=== PATIENT | male | born 1985 | race Caucasian/White ===

== ENCOUNTER → 2024-03-01 | Outpatient (REF) | payer OTHER ==
[2024-03-01 17:50] LABS: HEMATOCRIT 35.4 % (42.0-52.0); HEMOGLOBIN 9.6 g/dl (13.5-17.5); MEAN CORPUSCULAR HGB CONC 27.1 g/dl (32.0-36.5); MEAN CORPUSCULAR VOLUME 73.8 fl (80.0-96.0); PLATELET COUNT, AUTOMATED 326 10^3/uL (150-450)
[2024-03-01 18:22] LABS: ALBUMIN 3.3 G/DL (3.2-5.2); ALKALINE PHOSPHATASE 115 U/L (46-116); ALT/SGPT 61 U/L (7.0-40); AST/SGOT 39 U/L (<34); BILIRUBIN,TOTAL 0.7 MG/DL (0.3-1.2); BLOOD UREA NITROGEN 12 MG/DL (9-23); CALCIUM LEVEL 8.9 MG/DL (8.5-10.1); CARBON DIOXIDE LEVEL 27 MMOL/L (20-31); CHLORIDE LEVEL 104 MMOL/L (98-107); CHOLESTEROL LEVEL 134 MG/DL (<200); CHOLESTEROL RISK RATIO 2.44 (<5); CREATININE FOR GFR 0.84 MG/DL (0.70-1.30); GLOMERULAR FILTRATION RATE > 60.0 (>60); GLUCOSE, FASTING 126 MG/DL (60-100); HDL CHOLESTEROL 54.9 MG/DL (>40); LDL CHOLESTEROL 63.5 MG/DL (<100); NON-HDL-C 79.1 MG/DL; POTASSIUM SERUM 4.1 MMOL/L (3.5-5.1); SODIUM LEVEL 137 MMOL/L (136-145); TRIGLYCERIDES LEVEL 78 MG/DL (<150)
[2024-03-01 18:23] LABS: THYROID STIMULATING HORMONE 3.398 uIU/ML (0.55-4.78)
== END ==
LOC: M LAB REF 16:22
PROVIDERS: ATTEND Physician Assistant
DX: E66.01 Morbid (severe) obesity due to excess calories (principal)

== ENCOUNTER → 2024-04-09 | Outpatient (CLI) | payer MEDICAID | LOC: M RAD 08:45 | PROVIDERS: ATTEND Physician Assistant | DX: R74.01 Elevation of levels of liver transaminase levels (principal) ==

== ENCOUNTER → 2024-09-25 | Outpatient (REF) | payer OTHER, MEDICAID ==
[2024-09-25 15:21] LABS: BASO # 0.1 10^3/uL (0.0-0.2); BASO % 0.6 % (0.0-1.0); EOS # 0.3 10^3/uL (0.0-0.5); EOS % 3.9 % (0.0-3.0); HEMATOCRIT 51.7 % (42.0-52.0); HEMOGLOBIN 16.6 g/dl (13.5-17.5); LYMPH # 1.4 10^3/uL (1.5-5.0); LYMPH % 17.5 % (24.0-44.0); MEAN CORPUSCULAR HEMOGLOBIN 29.8 pg (27.0-33.0); MEAN CORPUSCULAR HGB CONC 32.1 g/dl (32.0-36.5); MEAN CORPUSCULAR VOLUME 92.8 fl (80.0-96.0); MONO # 0.6 10^3/uL (0.0-0.8); MONO % 7.8 % (2.0-8.0); NEUTROPHILS # 5.4 10^3/uL (1.5-8.5); NEUTROPHILS % 69.9 % (36.0-66.0); PLATELET COUNT, AUTOMATED 219 10^3/uL (150-450); RED BLOOD COUNT 5.57 10^6/uL (4.30-6.10); WHITE BLOOD COUNT 7.8 10^3/uL (4.0-10.0)
[2024-09-25 15:49] LABS: ALBUMIN 3.5 G/DL (3.2-5.2); ALKALINE PHOSPHATASE 112 U/L (40-129); ALT/SGPT 83 U/L (7.0-40); AST/SGOT 83 U/L (<34); BILIRUBIN,DIRECT 0.4 MG/DL (<0.4); BILIRUBIN,TOTAL 0.9 MG/DL (0.3-1.2); IRON (FE) 46 UG/DL (65-175); PERCENT SATURATION 14.2 % (19.7-50.0); TOTAL IRON BINDING CAPACITY 323 UG/DL (250-425); TOTAL PROTEIN 7.3 G/DL (5.7-8.2)
[2024-09-25 15:50] LABS: FERRITIN 64.6 NG/ML (10.5-307.3)
[2024-09-25 16:03] LABS: HEPATITIS B SURFACE ANTIGEN NEGATIVE (NEGATIVE)
[2024-09-25 16:24] LABS: HEPATITIS C VIRUS ABY INDEX 0.04 INDEX (<0.8)
[2024-09-25 16:25] LABS: HEPATITIS B CORE ANTIBODY IGM NEGATIVE (NEGATIVE)
== END ==
LOC: M LAB REF 14:13
PROVIDERS: ATTEND Physician Assistant
DX: R74.01 Elevation of levels of liver transaminase levels (principal)

== ENCOUNTER 2024-12-31 09:03 | Emergency (ER) | payer OTHER ==
[~2024-12-31] VITALS: Ht 172.7 cm; Wt 194.7 kg
[2024-12-31] MEDS ORDERED: AMLO1TAB24 PO (09:14)
[2024-12-31] MEDS ORDERED: HOME MED LIST COMPLETE! XX SCH (09:55)
[2024-12-31] MEDS: ASPIRIN 81 MG CHEWABLE TABLET PO ONE (10:06)
[2024-12-31 10:08] LABS: BASO # 0.0 10^3/uL (0.0-0.2); BASO % 0.5 % (0.0-1.0); EOS # 0.1 10^3/uL (0.0-0.5); EOS % 1.1 % (0.0-3.0); LYMPH # 1.3 10^3/uL (1.5-5.0); LYMPH % 15.6 % (24.0-44.0); MONO # 0.5 10^3/uL (0.0-0.8); MONO % 6.3 % (2.0-8.0); NEUTROPHILS # 6.3 10^3/uL (1.5-8.5); NEUTROPHILS % 76.1 % (36.0-66.0); PLATELET COUNT, AUTOMATED 199 10^3/uL (150-450)
[2024-12-31 10:34] LABS: ALT/SGPT 62 U/L (7.0-40); AST/SGOT 81 U/L (<34); CALCIUM LEVEL 9.0 MG/DL (8.5-10.1); CARBON DIOXIDE LEVEL 24 MMOL/L (20-31); CHLORIDE LEVEL 98 MMOL/L (98-107); CK-MB VALUE MASS < 1.0 NG/ML (<3.6); CREATININE FOR GFR 0.74 MG/DL (0.70-1.30); GLOMERULAR FILTRATION RATE > 90.0 (>60); POTASSIUM SERUM 3.9 MMOL/L (3.5-5.1); SODIUM LEVEL 137 MMOL/L (136-145)
[2024-12-31 10:38] LABS: FREE T4 1.19 NG/DL (0.89-1.76)
[2024-12-31 10:46] LABS: CPK CREATINE PHOSPHOKINASE 35 U/L (46-171)
[2024-12-31] MEDS ORDERED: ISOVUE-370 76% 100 ML VIAL As Ordered ONE (11:04)
[2024-12-31 11:21] LABS: CK-MB VALUE MASS < 1.0 NG/ML (<3.6)
[2024-12-31 11:41] LABS: CPK CREATINE PHOSPHOKINASE 27 U/L (46-171)
[2024-12-31 12:18] LABS: INR 0.99
[2024-12-31 14:16] VITALS: BP 134/73; TEMP 98.9; O2SAT 97
== END 2024-12-31 14:27 | disposition home or self-care (01) ==
LOC: M ED 09:03
DX: R07.9 Chest pain, unspecified (principal); R91.8 Other nonspecific abnormal finding of lung field; R16.0 Hepatomegaly, not elsewhere classified; K44.9 Diaphragmatic hernia without obstruction or gangrene; R00.0 Tachycardia, unspecified; I10 Essential (primary) hypertension; F12.10 Cannabis abuse, uncomplicated; Z79.899 Other long term (current) drug therapy
CPT/HCPCS: 36415; 71045; 71275; 80048; 80076; 82550; 82553; 84439; 84443; 84484; 85025; 85610; 85730; 93005; 93041; 94760; 99285; Q9967

== ENCOUNTER 2025-01-17 16:46 | Emergency (ER) | payer OTHER ==
[~2025-01-17] VITALS: Ht 172.7 cm; Wt 181.7 kg
[~2025-01-17 16:46] MED LIST: AMLO1TAB24 PO
[2025-01-17 17:58] LABS: BASO # 0.1 10^3/uL (0.0-0.2); BASO % 0.9 % (0.0-1.0); EOS # 0.1 10^3/uL (0.0-0.5); EOS % 1.1 % (0.0-3.0); LYMPH # 1.3 10^3/uL (1.5-5.0); LYMPH % 12.8 % (24.0-44.0); MONO # 0.9 10^3/uL (0.0-0.8); MONO % 8.4 % (2.0-8.0); NEUTROPHILS # 7.9 10^3/uL (1.5-8.5); NEUTROPHILS % 76.4 % (36.0-66.0); PLATELET COUNT, AUTOMATED 208 10^3/uL (150-450)
[2025-01-17 18:26] LABS: ALT/SGPT 78 U/L (7.0-40); AST/SGOT 79 U/L (<34); CALCIUM LEVEL 9.3 MG/DL (8.5-10.1); CARBON DIOXIDE LEVEL 22 MMOL/L (20-31); CHLORIDE LEVEL 98 MMOL/L (98-107); CREATININE FOR GFR 0.75 MG/DL (0.70-1.30); GLOMERULAR FILTRATION RATE > 90.0 (>60); POTASSIUM SERUM 3.5 MMOL/L (3.5-5.1); SODIUM LEVEL 137 MMOL/L (136-145)
[2025-01-17] MEDS: GASTROGRAFIN SOLUTION 30ML PO SCH (21:57)
[2025-01-17 23:30] VITALS: BP 155/91; TEMP 98; O2SAT 96
[2025-01-17] MEDS ORDERED: ISOVUE-370 76% 100 ML VIAL As Ordered ONE (23:31)
[2025-01-18] MEDS ORDERED: SUCR1SS PO (01:00)
[2025-01-18] MEDS ORDERED: REGL10TA6 PO (01:00)
== END 2025-01-18 01:10 | disposition home or self-care (01) ==
LOC: M ED 16:46
DX: K44.9 Diaphragmatic hernia without obstruction or gangrene (principal); R00.1 Bradycardia, unspecified; I25.2 Old myocardial infarction; K21.9 Gastro-esophageal reflux disease without esophagitis; I10 Essential (primary) hypertension; Z87.891 Personal history of nicotine dependence; Z79.899 Other long term (current) drug therapy
CPT/HCPCS: 74177; 80048; 80076; 83690; 85025; 93005; 96374; 99284; J2765; Q9963; Q9967

== ENCOUNTER 2025-01-21 09:46 | Emergency (ER) | payer OTHER ==
[~2025-01-21] VITALS: Ht 172.7 cm; Wt 181.7 kg
[~2025-01-21 09:46] MED LIST changes: +REGL10TA6 PO; +SUCR1SS PO
[2025-01-21 11:26] LABS: BASO # 0.1 10^3/uL (0.0-0.2); BASO % 0.6 % (0.0-1.0); EOS # 0.0 10^3/uL (0.0-0.5); EOS % 0.3 % (0.0-3.0); LYMPH # 1.1 10^3/uL (1.5-5.0); LYMPH % 9.7 % (24.0-44.0); MONO # 0.8 10^3/uL (0.0-0.8); MONO % 7.1 % (2.0-8.0); NEUTROPHILS # 8.8 10^3/uL (1.5-8.5); NEUTROPHILS % 81.7 % (36.0-66.0)
[2025-01-21] MEDS: PANTOPRAZOLE 40MG VIAL IV ONE (11:26)
[2025-01-21] MEDS: NS (Normal Saline) 0.9% 1,000 ML IV ONE (11:26)
[2025-01-21] MEDS: MORPHINE 4 MG/ML 1 ML VIAL IV ONE (11:27)
[2025-01-21 11:38] LABS: INR 1.01
[2025-01-21 11:43] LABS: PLATELET COUNT, AUTOMATED 149 10^3/uL (150-450)
[2025-01-21 11:55] LABS: ALT/SGPT 86 U/L (7.0-40); AST/SGOT 92 U/L (<34); CALCIUM LEVEL 9.2 MG/DL (8.5-10.1); CARBON DIOXIDE LEVEL 25 MMOL/L (20-31); CHLORIDE LEVEL 96 MMOL/L (98-107); CREATININE FOR GFR 0.71 MG/DL (0.70-1.30); GLOMERULAR FILTRATION RATE > 90.0 (>60); POTASSIUM SERUM 4.6 MMOL/L (3.5-5.1); SODIUM LEVEL 137 MMOL/L (136-145)
[2025-01-21] MEDS ORDERED: ISOVUE-370 76% 100 ML VIAL As Ordered ONE (13:25)
[2025-01-21 19:20] VITALS: BP 141/106; TEMP 96.6; O2SAT 100
== END 2025-01-21 19:20 | disposition short-term general hospital (02) ==
LOC: M ED 09:46
DX: K92.0 Hematemesis (principal); K44.9 Diaphragmatic hernia without obstruction or gangrene; I10 Essential (primary) hypertension; K21.9 Gastro-esophageal reflux disease without esophagitis; Z87.891 Personal history of nicotine dependence; Z79.899 Other long term (current) drug therapy
CPT/HCPCS: 74177; 80048; 80076; 83605; 83690; 85025; 85610; 85730; 86850; 86900; 86901; 96374; 96375; 99284; J2470; J2765; Q9967

== ENCOUNTER 2025-02-11 16:30 | Inpatient (IN) | payer OTHER ==
[~2025-02-11] VITALS: Ht 172.7 cm; Wt 181.3 kg
[2025-02-12] MEDS ORDERED: MOM 30 ML SUSPENSION UDC PO PRN (13:50)
[2025-02-12] MEDS ORDERED: CAPSAICIN 0.1% CR 56.6 GM TOP PRN (13:50)
[2025-02-12] MEDS ORDERED: ONDANSETRON 4MG ORAL DISINTEGRATING TAB PO PRN (13:50)
[2025-02-12] MEDS ORDERED: MECLIZINE 25 MG TABLET PO PRN (14:25)
[2025-02-12] MEDS ORDERED: FAMO1TAB11 PO (14:32)
[2025-02-12] MEDS ORDERED: LIDO1ADH93 TD (14:32)
[2025-02-12] MEDS ORDERED: FOLI1TAB11 PO (14:32)
[2025-02-12] MEDS ORDERED: PANT-23 PO (14:32)
[2025-02-12] MEDS ORDERED: ACET1TAB55 PO (14:32)
[2025-02-12] MEDS ORDERED: CAPS42.54 TOP (14:32)
[2025-02-12] MEDS ORDERED: MIRA3350 PO (14:32)
[2025-02-12] MEDS ORDERED: ONDA-282 PO (14:32)
[2025-02-12] MEDS ORDERED: METH-1164 PO (14:32)
[2025-02-12] MEDS ORDERED: ENOX40IN3 SC (14:32)
[2025-02-12] MEDS ORDERED: SENN-186 PO (14:32)
[2025-02-12] MEDS ORDERED: MICO2CRE22 TOP (14:32)
[2025-02-12] MEDS ORDERED: [UNRECOGNIZED DRUG - CODE] PO (14:32)
[2025-02-12] MEDS ORDERED: CVS10CAP7 PO (14:32)
[2025-02-12] MEDS ORDERED: MED REC COMMENT (14:36)
[2025-02-12] MEDS ORDERED: HOME MED LIST COMPLETE! XX SCH (14:40)
[2025-02-12 14:48] LABS: ESTIMATED AVERAGE GLUCOSE 108.0 MG/DL (60-110)
[2025-02-12 14:50] LABS: PLATELET COUNT, AUTOMATED 187 10^3/uL (150-450)
[2025-02-12 15:02] LABS: INR 0.94
[2025-02-12 15:10] LABS: ALT/SGPT 37 U/L (7.0-40); AST/SGOT 40 U/L (<34); CALCIUM LEVEL 9.0 MG/DL (8.5-10.1); CARBON DIOXIDE LEVEL 24 MMOL/L (20-31); CHLORIDE LEVEL 98 MMOL/L (98-107); CHOLESTEROL LEVEL 139.0 MG/DL (<200); CHOLESTEROL RISK RATIO 2.46 (<5); CREATININE FOR GFR 0.60 MG/DL (0.70-1.30); GLOMERULAR FILTRATION RATE > 90.0 (>60); LDL CHOLESTEROL 63.9 MG/DL (<100); NON-HDL-C 82.5 MG/DL; POTASSIUM SERUM 3.9 MMOL/L (3.5-5.1); SODIUM LEVEL 134 MMOL/L (136-145); TRIGLYCERIDES LEVEL 93.0 MG/DL (<150)
[2025-02-12 15:17] VITALS: O2SAT 97
[2025-02-12 15:51] VITALS: BP 147/94; TEMP 97.6; O2SAT 98
[2025-02-12] MEDS: LIDOCAINE 5% PATCH TD SCH (16:52)
[2025-02-12 18:41] VITALS: O2SAT 97
[2025-02-12] MEDS: RAMELTEON 8 MG TAB PO SCH (20:34)
[2025-02-12] MEDS: NYSTATIN 100,000 UNITS/GM TOPICAL PWD 15 GM TOP SCH (20:35)
[2025-02-12] MEDS: FAMOTIDINE 20 MG TAB PO SCH (20:35)
[2025-02-12] MEDS: ENOXAPARIN 40 MG/0.4 ML SYRINGE (J1650 PER 10MG) SC SCH (20:35)
[2025-02-12] MEDS: SENNA 8.6 MG TAB PO SCH (20:35)
[2025-02-12 20:56] VITALS: BP 153/103; TEMP 97.5; O2SAT 96
[2025-02-13 06:34] VITALS: BP 142/93; TEMP 97.3; O2SAT 96
[2025-02-13] MEDS: MIRALAX *UNIT DOSE* 17 GM PACKET PO SCH (08:20)
[2025-02-13] MEDS: PANTOPRAZOLE 40MG TAB PO SCH (08:28)
[2025-02-13] MEDS: amLODIPine 10 MG TAB PO SCH (08:28)
[2025-02-13] MEDS: FOLIC ACID 1 MG TAB PO SCH (08:28)
[2025-02-13 20:30] VITALS: BP 147/99; TEMP 97.3; O2SAT 96
[2025-02-13] MEDS: ACETAMINOPHEN 325 MG TAB PO PRN (20:32)
[2025-02-14 05:55] VITALS: BP 151/101; TEMP 97.5; O2SAT 96
[2025-02-15 04:44] VITALS: BP 129/90; TEMP 96.8; O2SAT 98
[2025-02-15 09:40] VITALS: BP 150/115
[2025-02-15 21:50] VITALS: BP 156/92
[2025-02-16 05:31] VITALS: BP 158/104; TEMP 97.2; O2SAT 95
[2025-02-16 05:40] VITALS: BP 152/94
[2025-02-16 09:11] VITALS: BP 163/104
[2025-02-17 06:26] VITALS: BP 162/106; TEMP 97.5; O2SAT 93
[2025-02-17] MEDS: METOPROLOL TART 25 MG TABLET PO SCH (08:45)
[2025-02-18 06:36] VITALS: BP 148/97; TEMP 97.3; O2SAT 93
[2025-02-18] MEDS: VITAMIN D 50,000 UNITS CAPSULE (ERGOCALCIFEROL 1.25MG) PO SCH (09:20)
[2025-02-19 02:37] LABS: BASO # 0.1 10^3/uL (0.0-0.2); BASO % 0.8 % (0.0-1.0); EOS # 0.1 10^3/uL (0.0-0.5); EOS % 1.4 % (0.0-3.0); LYMPH # 1.6 10^3/uL (1.5-5.0); LYMPH % 17.9 % (24.0-44.0); MONO # 0.9 10^3/uL (0.0-0.8); MONO % 9.8 % (2.0-8.0); NEUTROPHILS # 6.0 10^3/uL (1.5-8.5); NEUTROPHILS % 69.5 % (36.0-66.0); PLATELET COUNT, AUTOMATED 262 10^3/uL (150-450)
[2025-02-19 03:05] LABS: ALT/SGPT 50 U/L (7.0-40); AST/SGOT 49 U/L (<34); CALCIUM LEVEL 9.6 MG/DL (8.5-10.1); CARBON DIOXIDE LEVEL 24 MMOL/L (20-31); CHLORIDE LEVEL 93 MMOL/L (98-107); CREATININE FOR GFR 0.60 MG/DL (0.70-1.30); GLOMERULAR FILTRATION RATE > 90.0 (>60); POTASSIUM SERUM 3.9 MMOL/L (3.5-5.1); SODIUM LEVEL 131 MMOL/L (136-145)
[2025-02-19 03:24] LABS: MONO REFLEX EBV VCA IgM NEGATIVE (NEGATIVE)
[2025-02-19 03:51] LABS: HEPATITIS C VIRUS ABY INDEX < 0.02 INDEX (<0.8)
[2025-02-19 06:37] VITALS: BP 140/94; TEMP 96.8; O2SAT 96
[2025-02-19 09:41] LABS: KETONE, URINE AUTO RFX NEGATIVE (NEGATIVE); LEUKOCYTE ESTERASE UR AUTO RFX NEGATIVE (NEGATIVE); MUCUS, URINE RFX SMALL (NEGATIVE); NITRITE, URINE AUTO RFX NEGATIVE (NEGATIVE); RBC, URINE AUTO RFX 0 /HPF (0-3); SQUAM EPITHELIAL CELL UR AURFX 0 /HPF (0-6); WBC, URINE AUTO RFX 3 /HPF (0-3)
[2025-02-19] MEDS: NS (Normal Saline) 0.9% 1,000 ML IV SCH (22:36)
[2025-02-19 22:41] VITALS: BP 142/92
[2025-02-20 04:00] VITALS: BP 132/93; TEMP 96.8; O2SAT 97
[2025-02-20 07:42] LABS: ALT/SGPT 43 U/L (7.0-40); AST/SGOT 36 U/L (<34); CALCIUM LEVEL 9.0 MG/DL (8.5-10.1); CARBON DIOXIDE LEVEL 22 MMOL/L (20-31); CHLORIDE LEVEL 97 MMOL/L (98-107); CREATININE FOR GFR 0.54 MG/DL (0.70-1.30); GLOMERULAR FILTRATION RATE > 90.0 (>60); POTASSIUM SERUM 3.5 MMOL/L (3.5-5.1); SODIUM LEVEL 133 MMOL/L (136-145)
[2025-02-20 09:05] LABS: SODIUM,RANDOM URINE < 10 MMOL/L
[2025-02-20 20:00] VITALS: BP 128/88; TEMP 97.3; O2SAT 94
[2025-02-21 05:52] VITALS: BP 136/86; TEMP 97.2; O2SAT 95
[2025-02-21 10:30] LABS: PLATELET COUNT, AUTOMATED 196 10^3/uL (150-450)
[2025-02-21 10:59] LABS: ALT/SGPT 44 U/L (7.0-40); AST/SGOT 39 U/L (<34); CALCIUM LEVEL 8.3 MG/DL (8.5-10.1); CARBON DIOXIDE LEVEL 23 MMOL/L (20-31); CHLORIDE LEVEL 100 MMOL/L (98-107); CREATININE FOR GFR 0.47 MG/DL (0.70-1.30); GLOMERULAR FILTRATION RATE > 90.0 (>60); POTASSIUM SERUM 3.8 MMOL/L (3.5-5.1); SODIUM LEVEL 134 MMOL/L (136-145)
[2025-02-21 14:00] VITALS: BP 148/98; TEMP 97.3; O2SAT 97
[2025-02-21 20:03] VITALS: BP 133/77; TEMP 97.8; O2SAT 98
[2025-02-22 05:47] VITALS: BP 132/79; TEMP 97.9; O2SAT 97
[2025-02-22 14:00] VITALS: BP 140/95; TEMP 97.5; O2SAT 97
[2025-02-22 20:14] VITALS: BP 132/80; TEMP 97.5; O2SAT 96
[2025-02-23 05:52] VITALS: BP 126/78; TEMP 97.2; O2SAT 98
[2025-02-23 09:43] LABS: PLATELET COUNT, AUTOMATED 185 10^3/uL (150-450)
[2025-02-23 10:15] LABS: CALCIUM LEVEL 8.1 MG/DL (8.5-10.1); CARBON DIOXIDE LEVEL 23 MMOL/L (20-31); CHLORIDE LEVEL 100 MMOL/L (98-107); CREATININE FOR GFR 0.49 MG/DL (0.70-1.30); GLOMERULAR FILTRATION RATE > 90.0 (>60); POTASSIUM SERUM 3.4 MMOL/L (3.5-5.1); SODIUM LEVEL 134 MMOL/L (136-145)
[2025-02-23 14:00] VITALS: BP 134/78; TEMP 97.3; O2SAT 98
[2025-02-23 20:07] VITALS: BP 106/67; TEMP 97.3; O2SAT 97
[2025-02-24 06:08] VITALS: BP 126/73; TEMP 97; O2SAT 99
[2025-02-24] MEDS: ANALGESIC BALM CRM 3 OZ TOP SCH (09:00)
[2025-02-24] MEDS: GABAPENTIN 100 MG CAP PO SCH (11:02)
[2025-02-24 15:05] LABS: AMPHETAMINES LEVEL URINE NEGATIVE (NEGATIVE); BARBITURATES URINE NEGATIVE (NEGATIVE); BENZODIAZEPINES URINE NEGATIVE (NEGATIVE); COCAINE METABOLITE URINE NEGATIVE (NEGATIVE); METHADONE URINE NEGATIVE (NEGATIVE); OPIATES URINE NEGATIVE (NEGATIVE); PHENCYCLIDINE URINE NEGATIVE (NEGATIVE)
[2025-02-24 15:07] LABS: CANNABINOIDS URINE POSITIVE (NEGATIVE)
[2025-02-24 20:00] VITALS: BP 138/86; TEMP 97.3; O2SAT 97
[2025-02-25 06:18] VITALS: BP 139/82; TEMP 97; O2SAT 96
[2025-02-26 05:41] VITALS: BP 128/78; TEMP 97.2; O2SAT 97
[2025-02-27 05:18] VITALS: BP 119/76; TEMP 97.2; O2SAT 96
[2025-02-28 06:23] VITALS: BP 151/78; TEMP 97.2; O2SAT 97
[2025-02-28 20:00] VITALS: BP 120/83; TEMP 97.3; O2SAT 97
[2025-03-01 05:26] VITALS: BP 125/82; TEMP 97.3; O2SAT 96
[2025-03-01 19:39] VITALS: BP 128/85; TEMP 97.5; O2SAT 98
[2025-03-02 06:00] VITALS: BP 139/88; TEMP 97.7; O2SAT 98
[2025-03-02 20:31] VITALS: BP 138/88; TEMP 97.3; O2SAT 96
[2025-03-03 06:00] VITALS: BP 143/75; TEMP 97.2; O2SAT 97
[2025-03-04 06:00] VITALS: BP 142/86; TEMP 97.3; O2SAT 97
[2025-03-04 09:19] VITALS: BP 132/77
== END 2025-03-04 12:05 | disposition left against medical advice (07) | DRG 422 ==
LOC: M MS5PR 02-12 12:40 → OBSVTOIN 02-19 20:16
PROVIDERS: ADMIT Student in an Organized Health Care Education/Training Program; ATTEND Student in an Organized Health Care Education/Training Program
DX: E87.1 Hypo-osmolality and hyponatremia (principal); K92.0 Hematemesis; Z68.44 Body mass index [BMI] 60.0-69.9, adult; E66.01 Morbid (severe) obesity due to excess calories; G62.1 Alcoholic polyneuropathy; R16.1 Splenomegaly, not elsewhere classified; K76.0 Fatty (change of) liver, not elsewhere classified; E53.8 Deficiency of other specified B group vitamins; R91.1 Solitary pulmonary nodule; I95.1 Orthostatic hypotension; I10 Essential (primary) hypertension; R53.1 Weakness; K44.9 Diaphragmatic hernia without obstruction or gangrene; R42 Dizziness and giddiness; E86.0 Dehydration; E51.2 Wernicke's encephalopathy; R53.81 Other malaise; E56.9 Vitamin deficiency, unspecified; Z79.899 Other long term (current) drug therapy

== ENCOUNTER 2025-03-04 13:50 | Observation (INO) | payer OTHER ==
[~2025-03-04] VITALS: Ht 172.7 cm; Wt 207.7 kg
[~2025-03-04 13:50] MED LIST changes: +ACET1TAB55 PO; +CAPS42.54 TOP; +CVS10CAP7 PO; +ENOX40IN3 SC; +FAMO1TAB11 PO; +FOLI1TAB11 PO; +LIDO1ADH93 TD; +MED REC COMMENT; +METH-1164 PO; +MICO2CRE22 TOP; +MIRA3350 PO; +ONDA-282 PO; +PANT-23 PO; +SENN-186 PO; +[UNRECOGNIZED DRUG - CODE] PO
[2025-03-04] MEDS ORDERED: HOME MED LIST COMPLETE! XX SCH (17:35)
[2025-03-04] MEDS ORDERED: MECLIZINE 25 MG TABLET PO PRN (17:50)
[2025-03-04 18:33] LABS: BASO # 0.0 10^3/uL (0.0-0.2); BASO % 0.4 % (0.0-1.0); EOS # 0.0 10^3/uL (0.0-0.5); EOS % 0.2 % (0.0-3.0); LYMPH # 1.0 10^3/uL (1.5-5.0); LYMPH % 8.8 % (24.0-44.0); MONO # 0.9 10^3/uL (0.0-0.8); MONO % 7.9 % (2.0-8.0); NEUTROPHILS # 9.2 10^3/uL (1.5-8.5); NEUTROPHILS % 82.2 % (36.0-66.0); PLATELET COUNT, AUTOMATED 224 10^3/uL (150-450)
[2025-03-04 19:02] LABS: CALCIUM LEVEL 9.4 MG/DL (8.5-10.1); CARBON DIOXIDE LEVEL 28 MMOL/L (20-31); CHLORIDE LEVEL 95 MMOL/L (98-107); CREATININE FOR GFR 0.70 MG/DL (0.70-1.30); GLOMERULAR FILTRATION RATE > 90.0 (>60); POTASSIUM SERUM 4.2 MMOL/L (3.5-5.1); SODIUM LEVEL 132 MMOL/L (136-145)
[2025-03-04] MEDS: NS (Normal Saline) 0.9% 1,000 ML IV ONE (19:27)
[2025-03-04] MEDS: FAMOTIDINE 20 MG TAB PO SCH (21:27)
[2025-03-04] MEDS: SENNOSIDES/DOCUSATE SODIUM 8.6 MG/50MG TAB PO SCH (21:27)
[2025-03-04] MEDS: GABAPENTIN 300 MG CAP PO SCH (21:27)
[2025-03-04] MEDS: ENOXAPARIN 40 MG/0.4 ML SYRINGE (J1650 PER 10MG) SC SCH (21:27)
[2025-03-04] MEDS: METOPROLOL TART 25 MG TABLET PO SCH (21:28)
[2025-03-05] MEDS: MIRALAX *UNIT DOSE* 17 GM PACKET PO SCH (09:00)
[2025-03-05 09:03] LABS: BASO # 0.0 10^3/uL (0.0-0.2); BASO % 0.3 % (0.0-1.0); EOS # 0.1 10^3/uL (0.0-0.5); EOS % 0.6 % (0.0-3.0); LYMPH # 0.9 10^3/uL (1.5-5.0); LYMPH % 10.8 % (24.0-44.0); MONO # 0.7 10^3/uL (0.0-0.8); MONO % 8.2 % (2.0-8.0); NEUTROPHILS # 6.4 10^3/uL (1.5-8.5); NEUTROPHILS % 79.7 % (36.0-66.0); PLATELET COUNT, AUTOMATED 205 10^3/uL (150-450)
[2025-03-05] MEDS: PANTOPRAZOLE 40MG TAB PO SCH (09:18)
[2025-03-05] MEDS: FOLIC ACID 1 MG TAB PO SCH (09:18)
[2025-03-05] MEDS: amLODIPine 10 MG TAB PO SCH (09:20)
[2025-03-05 09:25] LABS: CALCIUM LEVEL 8.8 MG/DL (8.5-10.1); CARBON DIOXIDE LEVEL 26 MMOL/L (20-31); CHLORIDE LEVEL 97 MMOL/L (98-107); CREATININE FOR GFR 0.53 MG/DL (0.70-1.30); GLOMERULAR FILTRATION RATE > 90.0 (>60); POTASSIUM SERUM 3.6 MMOL/L (3.5-5.1); SODIUM LEVEL 132 MMOL/L (136-145)
[2025-03-05] MEDS: NYSTATIN 100,000 UNITS/GM TOPICAL PWD 15 GM TOP SCH (11:05)
[2025-03-05 17:55] VITALS: BP 143/88; TEMP 98.6; O2SAT 4; O2SAT 94
[2025-03-05] MEDS: RAMELTEON 8 MG TAB PO PRN (21:05)
[2025-03-06 04:39] VITALS: BP 124/75; TEMP 98.4; O2SAT 95
[2025-03-06] MEDS: GABAPENTIN 400 MG CAP PO SCH (15:25)
[2025-03-06] MEDS: PERCOCET 5MG/325MG TAB PO ONE (15:25)
[2025-03-06] MEDS: METOPROLOL TART 25 MG TABLET PO SCH (15:27)
[2025-03-07 04:02] VITALS: BP 138/78; TEMP 97.7; O2SAT 95
[2025-03-07] MEDS: PERCOCET 5MG/325MG TAB PO ONE (15:14)
[2025-03-08 04:00] VITALS: BP 132/76; TEMP 98.2; O2SAT 95
[2025-03-08] MEDS: PERCOCET 5MG/325MG TAB PO PRN (17:20)
[2025-03-09 04:23] VITALS: BP 149/83; TEMP 97.9; O2SAT 95
[2025-03-10 04:41] VITALS: BP 143/83; TEMP 98; O2SAT 96
[2025-03-11 05:14] VITALS: BP 131/76; TEMP 98.1; O2SAT 98
[2025-03-11] MEDS: VITAMIN D 50,000 UNITS CAPSULE (ERGOCALCIFEROL 1.25MG) PO SCH (08:34)
[2025-03-11] MEDS: ACETAMINOPHEN 325 MG TAB PO PRN (09:41)
[2025-03-12 04:50] VITALS: BP 128/76; TEMP 98.1; O2SAT 97
[2025-03-13 04:27] VITALS: BP 115/75; TEMP 98.1; O2SAT 96
[2025-03-14 02:55] VITALS: BP 131/83; TEMP 98.1; O2SAT 97
[2025-03-15 04:26] VITALS: BP 115/73; TEMP 98.1; O2SAT 90
[2025-03-16 04:58] VITALS: BP 135/79; TEMP 97.9; O2SAT 97
[2025-03-17 03:31] VITALS: BP 132/94; TEMP 97.5; O2SAT 97
[2025-03-18 03:47] VITALS: BP 115/67; TEMP 97.9; O2SAT 97
[2025-03-19 03:53] VITALS: BP 118/76; TEMP 98.1; O2SAT 94
[2025-03-20 04:18] VITALS: BP 115/71; TEMP 98.2; O2SAT 97
[2025-03-21 04:06] VITALS: BP 127/81; TEMP 98.1; O2SAT 95
[2025-03-22 03:44] VITALS: BP 120/74; TEMP 97.9; O2SAT 95
[2025-03-23 03:40] VITALS: BP 123/85; TEMP 98.1; O2SAT 98
[2025-03-24 04:00] VITALS: BP 128/87; TEMP 97.9; O2SAT 94
[2025-03-25 04:00] VITALS: BP 127/86; TEMP 98.2; O2SAT 96
[2025-03-26 03:34] VITALS: BP 122/60; TEMP 96.8; O2SAT 98
[2025-03-27 04:50] VITALS: BP 121/78; TEMP 97.9; O2SAT 98
[2025-03-28 04:13] VITALS: BP 119/75; TEMP 98.1; O2SAT 98
[2025-03-29 03:20] VITALS: BP 119/77; TEMP 97.7; O2SAT 95
[2025-03-30 04:00] VITALS: BP 123/83; TEMP 98.1; O2SAT 92
[2025-03-31 03:07] VITALS: BP 122/86; TEMP 97.7; O2SAT 93
[2025-04-01 03:44] VITALS: BP 116/74; TEMP 97.9; O2SAT 94
[2025-04-02 03:59] VITALS: BP 118/64; TEMP 98.6; O2SAT 97
[2025-04-02 17:24] VITALS: BP 127/72
[2025-04-02 20:39] VITALS: BP 124/76; TEMP 97.7; O2SAT 95
[2025-04-03 03:24] VITALS: BP 121/74; TEMP 98.1; O2SAT 93
[2025-04-04 05:15] VITALS: BP 115/72; TEMP 98.1; O2SAT 95
[2025-04-04 21:31] VITALS: BP 112/73
[2025-04-05 03:35] VITALS: BP 112/73; TEMP 98.4; O2SAT 99
[2025-04-05 20:30] VITALS: BP 116/77
[2025-04-06 03:18] VITALS: BP 113/69; TEMP 97.5; O2SAT 97
[2025-04-06 21:05] VITALS: BP 114/73
[2025-04-07 03:21] VITALS: BP 116/74; TEMP 98.1; O2SAT 96
[2025-04-08 05:02] VITALS: BP 118/80; TEMP 97.7; O2SAT 95
[2025-04-09 05:34] VITALS: BP 118/87; TEMP 97.9; O2SAT 95
[2025-04-10 05:41] VITALS: BP 116/75; TEMP 98.1; O2SAT 95
[2025-04-11 05:12] VITALS: BP 124/76; TEMP 98.1; O2SAT 95
[2025-04-12 04:09] VITALS: BP 117/76; TEMP 98.1; O2SAT 90
[2025-04-13 04:20] VITALS: BP 119/77; TEMP 97.9; O2SAT 91
[2025-04-13] MEDS: GABAPENTIN 100 MG CAP PO SCH (18:10)
[2025-04-14 04:14] VITALS: BP_SYST 118; BP_SYST 126; BP_DIAS 74; BP_DIAS 78; TEMP 98.1; O2SAT 95
[2025-04-15 03:20] VITALS: BP 129/84; TEMP 97.9; O2SAT 94
[2025-04-16 03:28] VITALS: BP 109/70; TEMP 98.1; O2SAT 91
[2025-04-17 05:08] VITALS: BP 124/64; TEMP 98.1; O2SAT 92
[2025-04-18 04:00] VITALS: BP 114/65; TEMP 98.7; O2SAT 97
[2025-04-19 04:18] VITALS: BP 119/76; TEMP 98.2; O2SAT 94
[2025-04-20 04:03] VITALS: BP 114/69; TEMP 98.4; O2SAT 94
[2025-04-20] MEDS: GABAPENTIN 300 MG CAP PO SCH (15:24)
[2025-04-21 04:04] VITALS: BP 120/73; TEMP 98.2; O2SAT 92
[2025-04-22 05:03] VITALS: BP 109/73; TEMP 98.3; O2SAT 98
[2025-04-23 04:00] VITALS: BP 117/72; TEMP 98.3; O2SAT 98
[2025-04-24 03:37] VITALS: BP 117/70; TEMP 97.3; O2SAT 94
[2025-04-24] MEDS: BISACODYL 10 MG SUPP PR ONE (16:00)
[2025-04-24 21:24] VITALS: BP 128/58
[2025-04-25 05:15] VITALS: BP 118/78; TEMP 98.1; O2SAT 92
[2025-04-25] MEDS ORDERED: GABA-1172 PO (16:33)
[2025-04-25] MEDS ORDERED: METO1TAB87 PO (16:33)
[2025-04-25] MEDS ORDERED: RAME8TAB2 PO (16:33)
[2025-04-25] MEDS ORDERED: NYST10006 TOP (16:33)
[2025-04-25] MEDS ORDERED: OXYC-517 PO (16:33)
[2025-04-25] MEDS ORDERED: DOCU8.6T PO (16:33)
[2025-04-25] MEDS ORDERED: MECL-86 PO (16:43)
== END 2025-04-25 18:09 | disposition home health service (06) ==
LOC: M ED 13:50 → M ED INP 13:51 → M MSPAV 03-05 17:30
PROVIDERS: ADMIT Internal Medicine; ATTEND Internal Medicine
DX: R53.1 Weakness (principal); R53.81 Other malaise; E66.01 Morbid (severe) obesity due to excess calories; Z68.44 Body mass index [BMI] 60.0-69.9, adult; Z74.09 Other reduced mobility; G62.9 Polyneuropathy, unspecified; R60.0 Localized edema; S92.351D Displaced fracture of fifth metatarsal bone, right foot, subsequent encounter for fracture with routine healing; W19.XXXD Unspecified fall, subsequent encounter; Y92.239 Unspecified place in hospital as the place of occurrence of the external cause; K44.9 Diaphragmatic hernia without obstruction or gangrene; K21.9 Gastro-esophageal reflux disease without esophagitis; I10 Essential (primary) hypertension; H81.399 Other peripheral vertigo, unspecified ear; E55.9 Vitamin D deficiency, unspecified; K59.00 Constipation, unspecified; F10.20 Alcohol dependence, uncomplicated; E87.1 Hypo-osmolality and hyponatremia; E87.6 Hypokalemia; Z79.899 Other long term (current) drug therapy
CPT/HCPCS: 36415; 80048; 84145; 85025; 87635; 97110; 97112; 97140; 97161; 97165; 97530; 97535; 99285; J1650